=== PATIENT | female | born 1955 | race Two or more races ===

== ENCOUNTER 2021-08-21 13:39 | Inpatient (IN) | payer MEDICAID, OTHER ==
[~2021-08-21] VITALS: Ht 157.5 cm; Wt 103.6 kg
[2021-08-21 19:29] LABS: Basophils # (auto) 0.1 10 ^3/uL (0-0.2); Eosinophils # (auto) 0.3 10 ^3/uL (0-0.8); Eosinophils % (auto) 3.4 % (0.0-7.0); Hematocrit 42.3 % (36.0-46.0); Hemoglobin 14.7 g/dL (12.2-16.2); Lymphocytes # (auto) 2.1 10 ^3/uL (0.4-5.4); Lymphocytes % (auto) 26.2 % (10.0-50.0); Mean Corpuscular Hemoglobin 31.8 pg (28.0-32.0); Mean Corpuscular Hgb Conc. 34.7 g/dL (32.0-36.0); Mean Corpuscular Volume 91.6 fL (80.0-100.0); Monocytes # (auto) 0.5 10 ^3/uL (0-1.3); Monocytes % (auto) 6.7 % (0.0-12.0); Neutrophils # (auto) 5.1 10 ^3/uL (1.6-8.6); Neutrophils % (auto) 62.7 % (37.0-80.0); Nucleated Red Blood Cells % 0.1 %; Red Blood Cells 4.62 10^6/uL (4.0-5.20); Red Cell Distribution Width 13.7 % (11.8-14.3); White Blood Cell 8.2 10^3/uL (4.4-10.8)
[2021-08-21 19:55] LABS: Albumin 3.7 g/dL (3.4-5.0); BUN/Creatinine Ratio 15.4; Calcium 10.4 mg/dL (8.5-10.1)
[2021-08-21 19:58] LABS: Bilirubin, Total 0.7 mg/dL (0.2-1.0); Total Protein 7.7 g/dL (6.4-8.2)
[2021-08-21] MEDS ORDERED: IOHEXOL 350 MG/ML 100ML IJ ONE (20:05)
[2021-08-21] MEDS ORDERED: MORPHINE SULFATE 4 MG/ML SYR/VIAL IV ONE (23:15)
[2021-08-21] MEDS ORDERED: ONDANSETRON HCL 4 MG/2 ML VIAL IV PRN (23:45)
[2021-08-21] MEDS ORDERED: NITROGLYCERIN 0.4 MG SL TAB SL PRN (23:45)
[2021-08-21] MEDS ORDERED: ACETAMINOPHEN 325 MG TAB PO PRN (23:45)
[2021-08-21] MEDS ORDERED: MORPHINE SULFATE INJECTION 2 MG/ML SYRG IV PRN (23:45)
[2021-08-22] MEDS: HYDROcodone-ACET 5/325MG TAB PO PRN ×2 (00:22→06:02)
[2021-08-22] MEDS: POTASSIUM CHL 20MEQ/100ML 100 ML IV SCH ×2 (02:00→04:27)
[2021-08-22] MEDS ORDERED: hydrALAZINE HCL 10 MG TAB PO PRN (02:15)
[2021-08-22] MEDS: MORPHINE SULFATE INJECTION 2 MG/ML SYRG IV PRN ×2 (04:04→10:44)
[2021-08-22 05:00] VITALS: BP 163/96
[2021-08-22] MEDS: SODIUM CHLOR 0.9% PF (SALINE LOCK) 10ML VIAL/SYR IV SCH ×3 (06:12→22:00)
[2021-08-22 08:42] LABS: Basophils # (auto) 0.1 10 ^3/uL (0-0.2); Eosinophils # (auto) 0.2 10 ^3/uL (0-0.8); Eosinophils % (auto) 2.3 % (0.0-7.0); Hematocrit 42.5 % (36.0-46.0); Hemoglobin 14.8 g/dL (12.2-16.2); Lymphocytes # (auto) 1.9 10 ^3/uL (0.4-5.4); Lymphocytes % (auto) 22.4 % (10.0-50.0); Mean Corpuscular Hgb Conc. 34.8 g/dL (32.0-36.0); Mean Corpuscular Volume 92.1 fL (80.0-100.0); Monocytes # (auto) 0.6 10 ^3/uL (0-1.3); Monocytes % (auto) 7.4 % (0.0-12.0); Neutrophils # (auto) 5.6 10 ^3/uL (1.6-8.6); Neutrophils % (auto) 66.9 % (37.0-80.0); Nucleated Red Blood Cells % 0.1 %; Red Blood Cells 4.62 10^6/uL (4.0-5.20); White Blood Cell 8.4 10^3/uL (4.4-10.8)
[2021-08-22 08:54] VITALS: BP 116/60
[2021-08-22 08:54] LABS: Albumin 3.7 g/dL (3.4-5.0); Calcium 9.8 mg/dL (8.5-10.1); Potassium 3.3 mmol/L (3.5-5.1)
[2021-08-22 08:57] LABS: BUN/Creatinine Ratio 16.1; Bilirubin, Total 0.7 mg/dL (0.2-1.0); Total Protein 7.8 g/dL (6.4-8.2)
[2021-08-22] MEDS: ENOXAPARIN SOD 40 MG/0.4 ML SYRINGE SC SCH (09:59)
[2021-08-22 12:53] VITALS: BP 127/86
[2021-08-22] MEDS ORDERED: SODIUM CHLORIDE 0.9% 1,000 ML IV SCH (14:15)
[2021-08-22] MEDS ORDERED: POTASSIUM EFFERVESENT TAB 25 MEQ PO ONE (14:15)
[2021-08-22 17:20] VITALS: BP 132/78
[2021-08-22 22:11] VITALS: BP 126/68
[2021-08-23] MEDS: MORPHINE SULFATE INJECTION 2 MG/ML SYRG IV PRN (02:20)
[2021-08-23] MEDS: HYDROcodone-ACET 5/325MG TAB PO PRN ×2 (04:30→10:28)
[2021-08-23 05:49] LABS: Albumin 3.3 g/dL (3.4-5.0); Magnesium 2.1 mg/dL (1.6-2.6); Potassium 3.7 mmol/L (3.5-5.1)
[2021-08-23 05:54] LABS: BUN/Creatinine Ratio 21.1; Bilirubin, Total 0.7 mg/dL (0.2-1.0); Total Protein 7.1 g/dL (6.4-8.2)
[2021-08-23 06:05] VITALS: BP 133/80
[2021-08-23] MEDS: SODIUM CHLOR 0.9% PF (SALINE LOCK) 10ML VIAL/SYR IV SCH ×3 (06:11→22:00)
[2021-08-23 08:40] VITALS: BP 148/86
[2021-08-23] MEDS: ENOXAPARIN SOD 40 MG/0.4 ML SYRINGE SC SCH (10:26)
[2021-08-23] MEDS ORDERED: CHOLECALCIFEROL (VITD3) 2,000 UNIT CAP/TAB PO ONE (11:30)
[2021-08-23 13:25] VITALS: BP 149/78
[2021-08-23] MEDS ORDERED: IOHEXOL 300 MG/ML 100ML BOTTLE IJ ONE (16:23)
[2021-08-23 17:00] VITALS: BP 132/89
[2021-08-23 21:59] VITALS: BP 152/80
[2021-08-24 04:53] VITALS: BP 132/89
[2021-08-24] MEDS: SODIUM CHLOR 0.9% PF (SALINE LOCK) 10ML VIAL/SYR IV SCH ×3 (06:00→21:55)
[2021-08-24 06:02] LABS: Potassium 3.8 mmol/L (3.5-5.1)
[2021-08-24 06:05] LABS: Magnesium 2.4 mg/dL (1.6-2.6)
[2021-08-24] MEDS: SODIUM CHLORIDE 0.9% 1,000 ML IV SCH ×2 (07:30→08:53)
[2021-08-24] MEDS: ENOXAPARIN SOD 40 MG/0.4 ML SYRINGE SC SCH (08:52)
[2021-08-24] MEDS: CHOLECALCIFEROL (VITD3) 2,000 UNIT CAP/TAB PO SCH (08:52)
[2021-08-24 09:00] VITALS: BP 150/88
[2021-08-24] MEDS ORDERED: LEVOTHYROXINE SODIUM 25 MCG TAB PO ONE (11:45)
[2021-08-24 13:00] VITALS: BP 168/91
[2021-08-24 17:00] VITALS: BP 147/90
[2021-08-24 21:36] VITALS: BP 136/85
[2021-08-24] MEDS: HYDROcodone-ACET 5/325MG TAB PO PRN (21:56)
[2021-08-25] MEDS: SODIUM CHLORIDE 0.9% 1,000 ML IV SCH (04:15)
[2021-08-25 04:30] VITALS: BP 129/87
[2021-08-25] MEDS: SODIUM CHLOR 0.9% PF (SALINE LOCK) 10ML VIAL/SYR IV SCH ×3 (06:13→21:58)
[2021-08-25] MEDS: LEVOTHYROXINE SODIUM 25 MCG TAB PO SCH (06:14)
[2021-08-25 09:00] VITALS: BP 158/99
[2021-08-25] MEDS: ENOXAPARIN SOD 40 MG/0.4 ML SYRINGE SC SCH (09:02)
[2021-08-25] MEDS: CHOLECALCIFEROL (VITD3) 2,000 UNIT CAP/TAB PO SCH (09:02)
[2021-08-25] MEDS: DOCUSATE SOD 100 MG CAP PO PRN (09:07)
[2021-08-25 13:00] VITALS: BP 134/81
[2021-08-25 17:24] VITALS: BP 164/99
[2021-08-25] MEDS: MORPHINE SULFATE INJECTION 2 MG/ML SYRG IV PRN (18:38)
[2021-08-25 22:00] VITALS: BP 154/90
[2021-08-26] MEDS: SODIUM CHLORIDE 0.9% 1,000 ML IV SCH (00:51)
[2021-08-26 05:00] VITALS: BP 166/101
[2021-08-26] MEDS: LEVOTHYROXINE SODIUM 25 MCG TAB PO SCH (05:55)
[2021-08-26] MEDS: SODIUM CHLOR 0.9% PF (SALINE LOCK) 10ML VIAL/SYR IV SCH ×3 (05:56→22:21)
[2021-08-26 06:07] LABS: Urine Bacteria NONE SEEN /hpf (None Seen); Urine Blood Negative /uL (Negative); Urine Specific Gravity 1.008 (1.001-1.035); Urine WBC 2 /hpf (0 - 5)
[2021-08-26 06:07] LABS: Basophils # (auto) 0.1 10 ^3/uL (0-0.2); Basophils % (auto) 0.8 % (0.0-2.0); Eosinophils # (auto) 0.4 10 ^3/uL (0-0.8); Eosinophils % (auto) 5.2 % (0.0-7.0); Hemoglobin 13.9 g/dL (12.2-16.2); Lymphocytes # (auto) 2.7 10 ^3/uL (0.4-5.4); Monocytes # (auto) 0.6 10 ^3/uL (0-1.3); Monocytes % (auto) 7.7 % (0.0-12.0); Neutrophils # (auto) 4.4 10 ^3/uL (1.6-8.6); Neutrophils % (auto) 53.3 % (37.0-80.0); Nucleated Red Blood Cells % 0.1 %; Red Blood Cells 4.29 10^6/uL (4.0-5.20); White Blood Cell 8.2 10^3/uL (4.4-10.8)
[2021-08-26 06:08] LABS: Hematocrit 39.9 % (36.0-46.0); Mean Corpuscular Hemoglobin 32.5 pg (28.0-32.0); Mean Corpuscular Volume 92.9 fL (80.0-100.0); Red Cell Distribution Width 13.7 % (11.8-14.3)
[2021-08-26 06:14] LABS: Albumin 3.4 g/dL (3.4-5.0); Calcium 10.3 mg/dL (8.5-10.1); Potassium 4.1 mmol/L (3.5-5.1)
[2021-08-26 06:16] LABS: BUN/Creatinine Ratio 13.5
[2021-08-26 06:18] LABS: Bilirubin, Total 0.6 mg/dL (0.2-1.0); Total Protein 7.5 g/dL (6.4-8.2)
[2021-08-26 06:19] LABS: INR 1.01 (0.9-1.15); Partial Thromboplastin Time 26.9 sec (23.6-33.0)
[2021-08-26 06:30] VITALS: BP 150/94
[2021-08-26 09:00] VITALS: BP 147/93
[2021-08-26] MEDS: CHOLECALCIFEROL (VITD3) 2,000 UNIT CAP/TAB PO SCH (10:00)
[2021-08-26] MEDS: ENOXAPARIN SOD 40 MG/0.4 ML SYRINGE SC SCH (10:00)
[2021-08-26] MEDS: HYDROcodone-ACET 5/325MG TAB PO PRN ×2 (10:38→22:44)
[2021-08-26 13:00] VITALS: BP 142/90
[2021-08-26] MEDS ORDERED: NEOSTIGMINE 1 MG/ML INJ (10mg/10ML VIAL) IV ONE (13:25)
[2021-08-26] MEDS ORDERED: ROCURONIUM 10MG/ML 10ML VIAL IV ONE (13:25)
[2021-08-26] MEDS ORDERED: ePHEDrine SULFATE 50 MG/ML AMP IV ONE (13:25)
[2021-08-26] MEDS ORDERED: ceFAZolin 1GM/50ML 100 ML IV ONE (14:25)
[2021-08-26] MEDS ORDERED: BUPIVACAINE HCL 50 ML ONE (14:31)
[2021-08-26] MEDS ORDERED: fentaNYL CITRATE 100 MCG/2 ML VL ONE (14:44)
[2021-08-26] MEDS ORDERED: MIDAZOLAM HCL 2MG/2ML 2ml VIAL (1mg/ml) ONE (14:44)
[2021-08-26] MEDS ORDERED: SUCCINYLCHOLINE CHLORIDE 20 MG/ML 10ML VIAL IV ONE (14:45)
[2021-08-26] MEDS ORDERED: DexAMETHasone SOD PHOS 10MG/1ML VIAL INJ ONE (15:30)
[2021-08-26] MEDS ORDERED: ONDANSETRON HCL 4 MG/2 ML VIAL ONE (15:30)
[2021-08-26] MEDS ORDERED: GLYCOPYRROLATE 0.2 MG/ML 1ML VIAL ONE (15:30)
[2021-08-26] MEDS ORDERED: NEOSTIGMINE 1 MG/ML INJ (10mg/10ML VIAL) ONE (15:30)
[2021-08-26] MEDS ORDERED: METOCLOPRAMIDE HCL 5MG/ml INJ 2ml VIAL ONE (15:31)
[2021-08-26] MEDS ORDERED: PROPOFOL 10 MG/ML 20 ML IV ONE (15:31)
[2021-08-26] MEDS ORDERED: hydrALAZINE HCL 20 MG/ML VL ONE (15:52)
[2021-08-26] MEDS ORDERED: HYDROmorphone HCL 2 MG/ML VL/or syr ONE (15:53)
[2021-08-26] MEDS: HYDROmorphone HCL 2 MG/ML VL/or syr IV PRN ×3 (15:55→16:15)
[2021-08-26] MEDS ORDERED: hydrALAZINE HCL 20 MG/ML VL IV PRN (16:00)
[2021-08-26] MEDS ORDERED: HYDROmorphone HCL 2 MG/ML VL/or syr IV PRN (16:00)
[2021-08-26] MEDS ORDERED: METOCLOPRAMIDE HCL 5MG/ml INJ 2ml VIAL IV PRN (16:00)
[2021-08-26] MEDS ORDERED: ONDANSETRON HCL 4 MG/2 ML VIAL IV PRN (16:00)
[2021-08-26 17:17] VITALS: BP 150/99
[2021-08-26 22:00] VITALS: BP 164/96
[2021-08-26] MEDS: MORPHINE SULFATE INJECTION 2 MG/ML SYRG IV PRN (22:22)
[2021-08-27 05:00] VITALS: BP 127/92
[2021-08-27] MEDS: HYDROcodone-ACET 5/325MG TAB PO PRN ×2 (07:02→12:14)
[2021-08-27] MEDS: SODIUM CHLOR 0.9% PF (SALINE LOCK) 10ML VIAL/SYR IV SCH ×2 (07:02→14:00)
[2021-08-27] MEDS: LEVOTHYROXINE SODIUM 25 MCG TAB PO SCH (07:02)
[2021-08-27 07:09] LABS: BUN/Creatinine Ratio 11.8; Basophils # (auto) 0 10 ^3/uL (0-0.2); Basophils % (auto) 0.1 % (0.0-2.0); Eosinophils # (auto) 0 10 ^3/uL (0-0.8); Hematocrit 40.6 % (36.0-46.0); Hemoglobin 13.9 g/dL (12.2-16.2); Lymphocytes # (auto) 1.1 10 ^3/uL (0.4-5.4); Lymphocytes % (auto) 9.8 % (10.0-50.0); Mean Corpuscular Hemoglobin 32.1 pg (28.0-32.0); Mean Corpuscular Hgb Conc. 34.1 g/dL (32.0-36.0); Monocytes # (auto) 0.2 10 ^3/uL (0-1.3); Monocytes % (auto) 1.8 % (0.0-12.0); Neutrophils # (auto) 9.5 10 ^3/uL (1.6-8.6); Neutrophils % (auto) 88.3 % (37.0-80.0); Nucleated Red Blood Cells % 0.1 %; Potassium 4.4 mmol/L (3.5-5.1); Red Blood Cells 4.32 10^6/uL (4.0-5.20); White Blood Cell 10.8 10^3/uL (4.4-10.8)
[2021-08-27 08:00] VITALS: BP 131/87
[2021-08-27] MEDS ORDERED: LISINOPRIL 20 MG TAB PO SCH (10:00)
[2021-08-27 12:00] VITALS: BP 130/86
[2021-08-27] MEDS: ENOXAPARIN SOD 40 MG/0.4 ML SYRINGE SC SCH (12:13)
[2021-08-27] MEDS: CHOLECALCIFEROL (VITD3) 2,000 UNIT CAP/TAB PO SCH (12:13)
[2021-08-27] MEDS: DOCUSATE SOD 100 MG CAP PO PRN (12:25)
[2021-08-27] MEDS ORDERED: CHOL20007 PO (13:59)
[2021-08-27] MEDS ORDERED: LEV50T PO (13:59)
[2021-08-27] MEDS ORDERED: LISI20TA28 PO (13:59)
[2021-08-27 16:00] VITALS: BP 131/86
[2021-08-27 17:29] VITALS: BP 130/86
== END 2021-08-27 20:30 | disposition home health service (06) | DRG 363 ==
LOC: ER 13:39 → OVERFLOW 23:43 → CENTRAL 08-22 03:20
PROVIDERS: ADMIT Nurse Practitioner Family; ATTEND Internal Medicine
PROC: 0HBU0ZX Excision of Left Breast, Open Approach, Diagnostic (ICD-10-PCS; principal; 2021-08-26 14:39)
DX: N63.20 Unspecified lump in the left breast, unspecified quadrant (principal); N17.0 Acute kidney failure with tubular necrosis; C79.51 Secondary malignant neoplasm of bone; E66.01 Morbid (severe) obesity due to excess calories; E87.6 Hypokalemia; F17.210 Nicotine dependence, cigarettes, uncomplicated; I12.9 Hypertensive chronic kidney disease with stage 1 through stage 4 chronic kidney disease, or unspecified chronic kidney disease; J98.11 Atelectasis; N18.9 Chronic kidney disease, unspecified; E03.9 Hypothyroidism, unspecified; E55.9 Vitamin D deficiency, unspecified; E78.5 Hyperlipidemia, unspecified; R73.03 Prediabetes; M25.562 Pain in left knee; M19.90 Unspecified osteoarthritis, unspecified site; R73.9 Hyperglycemia, unspecified; Z20.822 Contact with and (suspected) exposure to COVID-19; R59.1 Generalized enlarged lymph nodes; Z68.41 Body mass index [BMI] 40.0-44.9, adult
CPT/HCPCS: 36415; 71045; 71275; 72148; 73562; 73721; 74177; 78306; 80048; 80053; 80061; 81001; 82306; 83036; 83735; 84132; 84443; 84484; 85025; 85610; 85730; 86850; 86900; 86901; 93306; 93971; G0378; J0330; J0690; J1100; J2250; J2405; J2704; J3480; J3490